=== PATIENT | female | born 1985 | race African-American/Black ===

== ENCOUNTER 2018-06-12 23:24 | Emergency (ER) | payer OTHER, BC ==
[2018-06-12 23:28] VITALS: BP 123/79; PULSE 86; TEMP 98; BMI 40.8
--- NOTE | 2018-06-13 00:12 | PDOC ---
History of Present Illness - General History Source: Patient Exam Limitations: No Limitations - History of Present Illness Initial Comments: 06/13/18 00:25 The patient is a 32-year-old female present to the emergency department with ear pain. The patient presents with 2 weeks of Left ear pain. The patient reports using ear wax drop and Q-tip to remove the wax from the ear, without success. The patient reports now the pain is to her face and nerves Denies fever. <Belkis Darling - Last Filed: 06/13/18 00:22> <Abel David - Last Filed: 06/13/18 00:35> - General Chief Complaint: Ear Problem Stated Complaint: EAR INFECTION Time Seen by Provider: 06/13/18 00:11 Past History <Belkis Darling - Last Filed: 06/13/18 00:22> - Past Medical History Anemia: No Asthma: No CVA: No COPD: No Diabetes: No HTN: No Liver Disease: No Seizures: No Thyroid Disease: No - Immunization History Immunization Up to Date: Yes - Suicide/Smoking/Psychosocial Hx Smoking History: Never smoked Have you smoked in the past 12 months: No Information on smoking cessation initiated: No Hx Alcohol Use: No Drug/Substance Use Hx: No <Abel David - Last Filed: 06/13/18 00:35> - Past Medical History Allergies/Adverse Reactions: Allergies Allergy/AdvReac Type Severity Reaction Status Date / Time amoxicillin trihydrate AdvReac Vomiting Verified 06/12/18 23:28 [From Augmentin] potassium clavulanate AdvReac Vomiting Verified 06/12/18 23:28 [From Augmentin] Home Medications: Ambulatory Orders Diclofenac Sodium [Voltaren] 4 g TP Q6H PRN #100 gel..gram. 08/19/17 Carboxymethylcellulose Sodium [Thera Tears] 1 - 2 drop OP PRN #15 ml 12/02/17 Clotrimazole [Clotrimazole AF] 1 applic TP BID #60 cream..g. 12/02/17 Triamcinolone 0.1% Ointment [Aristocort 0.1% Ointment -] 1 applic TP BID #30 applic 12/02/17 Abacavir Sulfate/Lamivudine [Epzicom Tablet] 1 tablet PO DAILY #30 tablet Albuterol Sulfate Inhaler - [Ventolin HFA Inhaler -] 1 - 2 puff IH Q6H PRN #1 inhaler 03/31/18 Beclomethasone Dipropionate [Qvar] 2 puff IH BID #1 aer.w.adap 03/31/18 Darunavir/Cobicistat [Prezcobix 800 mg-150 mg Tablet] 1 each PO DAILY #30 tablet 03/31/18 Vitamins (Sjr) - 1 tab PO DAILY #30 tablet 03/31/18 Raltegravir [Isentress -] 400 mg PO BID #60 tab 03/31/18 Valacyclovir HCl [Valtrex -] 500 mg PO DAILY #30 tablet 03/31/18 Cetirizine HCl [Zyrtec -] 10 mg PO HS PRN #30 tablet 04/15/18 Guaifenesin Dm [Robitussin Dm -] 10 ml PO Q4H PRN #240 ml 04/15/18 Ketoconazole 2% Shampoo [Nizoral 2% Shampoo -] 1 applic TP Q72H #1 bottle metroNIDAZOLE 0.75% VAG. GEL [Metrogel 0.75% *Vaginal Gel* -] 1 applic VG HS #1 tube 05/13/18 Review of Systems - Review of Systems Able to Perform ROS?: Yes Comments:: 06/13/18 00:25 A complete review of 10 out of 10 review of systems is taken and is negative apart from what is previously mentioned below and in the HPI. <Belkis Darling - Last Filed: 06/13/18 00:22> *Physical Exam - Vital Signs Last Vital Signs Temp Pulse Resp BP Pulse Ox 98.0 F 86 16 123/79 100 06/12/18 23:26 06/12/18 23:26 06/12/18 23:26 06/12/18 23:26 06/12/18 23:26 - Physical Exam Comments: 06/13/18 00:26 Vitals: Triage Vital signs reviewed General Appearance: no acute distress, well nourished well developed, Ears: +L. ear cerumen ball impact stuck against the TM. <Belkis Darling - Last Filed: 06/13/18 00:22> - Vital Signs Last Vital Signs Temp Pulse Resp BP Pulse Ox 98.0 F 86 16 123/79 100 06/12/18 23:26 06/12/18 23:26 06/12/18 23:26 06/12/18 23:26 06/12/18 23:26 <Abel David - Last Filed: 06/13/18 00:35> Medical Decision Making - Medical Decision Making 06/13/18 00:25 The patient is a 32-year-old female present to the emergency department with ear pain. The patient presents with 2 weeks of Left ear pain. The patient reports using ear wax drop and Q-tip to remove the wax from the ear, without success. The patient reports now the pain is to her face and nerves Denies fever. <Belkis Darling - Last Filed: 06/13/18 00:22> - Medical Decision Making 06/13/18 00:35 Impacted cerumen now abutting against the eardrum attempted manual disimpaction however unable to use direct visualization here in the emergency department patient did not tolerate procedure. Given risk of eardrum injury and no acute need for cerumen removal recommend patient have ear wax removed by ENT under microscope with suction Findings, the need for follow-up, strict return instructions discussed with patient. <Abel David - Last Filed: 06/13/18 00:35> *DC/Admit/Observation/Transfer - Attestations Scribe Attestion: 06/13/18 00:28 Documentation prepared by Belkis Darling, acting as medical lead for Abel David MD. <Belkis Darling - Last Filed: 06/13/18 00:22> - Discharge Dispostion Decision to Admit order: No <Abel David - Last Filed: 06/13/18 00:35> Diagnosis at time of Disposition: Impacted cerumen of left ear - Discharge Dispostion Disposition: HOME - Referrals Referrals: Henok Walden MD [Staff Physician] - - Patient Instructions Printed Discharge Instructions: Cerumen Impaction Additional Instructions: Continue to use Debrox eardrops. Do not use Q-tips. Follow-up with ENT on Thursday for removal of cerumen. Return to ED for any fever severe worsening symptoms or for any concerns. - Post Discharge Activity Forms/Work/School Notes: Back to Work
== END 2018-06-13 01:11 | disposition home or self-care (01) ==
LOC: JER 23:24
PROC: 09C47ZZ Extirpation of Matter from Left External Auditory Canal, Via Natural or Artificial Opening (ICD-10-PCS; principal; 2018-06-12)
DX: H61.22 Impacted cerumen, left ear (principal)
CPT/HCPCS: 69210; 99282-25

== ENCOUNTER 2021-02-21 17:58 | Emergency (ER) | payer BC, OTHER ==
[2021-02-21 18:10] VITALS: BP 116/79; PULSE 91; TEMP 98; BMI 42.9
[2021-02-21 19:08] LABS: BASO % 0.4 % (0-2.0); HEMATOCRIT 34.2 % (32.4-45.2); HEMOGLOBIN 11.1 GM/dL (10.7-15.3); LYMPH % 36.7 % (8-40); MCH 24.2 pg (25.7-33.7); MCHC 32.4 g/dl (32.0-36.0); MEAN CELL VOLUME 74.5 fl (80-96); MEAN PLT VOLUME 8.1 fl (7.5-11.1); MONO % 6.4 % (3.8-10.2); NEUT % 53.5 % (42.8-82.8); PLATELET COUNT 306 10^3/uL (134-434); RBC 4.59 M/mm3 (3.60-5.2); RDW 18.1 % (11.6-15.6); WHITE BLOOD COUNT 11.1 K/mm3 (4.0-10.0)
[2021-02-21 19:23] LABS: EPI CELLS >36 /uL (0-25.1); HYALINE CASTS 2 /uL (0-3.1); URINE APPEARANCE CLEAR; URINE BACTERIA 1805 /uL (0-1359); URINE BILIRUBIN NEGATIVE (NEGATIVE); URINE COLOR DK YELLOW; URINE GLUCOSE (UA) NEGATIVE (NEGATIVE); URINE KETONE NEGATIVE (NEGATIVE); URINE LEUK ESTERASE 1+ (NEGATIVE); URINE NITRITE NEGATIVE (NEGATIVE); URINE PROTEIN NEGATIVE (NEGATIVE); URINE UROBILINOGEN 0.2 mg/dL (0.2-1.0); URINE WBC 60 /uL (0-25.8)
[2021-02-21 19:25] LABS: CALCIUM 8.6 mg/dL (8.5-10.1)
[2021-02-21 19:26] LABS: ALBUMIN 3.2 g/dl (3.4-5.0); BLOOD UREA NITROGEN 15.4 mg/dL (7-18)
[2021-02-21 19:29] LABS: CREATININE 0.8 mg/dL (0.55-1.3)
[2021-02-21 19:30] LABS: TOT PROT 7.9 g/dl (6.4-8.2)
[2021-02-21 19:31] LABS: BILIRUBIN,TOTAL 0.3 mg/dL (0.2-1)
[2021-02-21 23:19] LABS: URINE RBC 68.9 /uL (0-23.9)
== END 2021-02-21 21:10 | disposition home or self-care (01) ==
LOC: JERFT 17:58 → JER 17:58 → JERFT 21:10
DX: O23.41 Unspecified infection of urinary tract in pregnancy, first trimester (principal); Z3A.01 Less than 8 weeks gestation of pregnancy
CPT/HCPCS: 36415; 76817-TC; 80053; 81003; 84702; 85025; 87086; 87186; 99284-25

== ENCOUNTER 2021-02-27 11:22 | Emergency (ER) | payer BC, OTHER ==
[2021-02-27 12:27] VITALS: BP 136/82; PULSE 107; TEMP 98.1; BMI 42.2
[2021-02-27 14:54] LABS: EPI CELLS >36 /uL (0-25.1); HYALINE CASTS 6 /uL (0-3.1); URINE APPEARANCE CLOUDY; URINE BACTERIA 269 /uL (0-1359); URINE BILIRUBIN NEGATIVE (NEGATIVE); URINE COLOR DK YELLOW; URINE GLUCOSE (UA) NEGATIVE (NEGATIVE); URINE KETONE NEGATIVE (NEGATIVE); URINE LEUK ESTERASE 2+ (NEGATIVE); URINE NITRITE NEGATIVE (NEGATIVE); URINE PROTEIN TRACE (NEGATIVE); URINE RBC 21 /uL (0-23.9); URINE UROBILINOGEN 0.2 mg/dL (0.2-1.0); URINE WBC 136 /uL (0-25.8)
[2021-02-27 15:25] LABS: YEAST PRESENT (NEGATIVE)
== END 2021-02-27 18:20 | disposition home or self-care (01) ==
LOC: JER 11:22
DX: U07.1 COVID-19 (principal); Z21 Asymptomatic human immunodeficiency virus [HIV] infection status; Z3A.01 Less than 8 weeks gestation of pregnancy
CPT/HCPCS: 76817-TC; 81003; 87086; 99284-25; C9803; U0003; U0005

== ENCOUNTER 2021-03-25 01:29 | Emergency (ER) | payer BC, OTHER ==
[2021-03-25 01:35] VITALS: BP 101/63; PULSE 96; BMI 42.9
[2021-03-25 03:05] LABS: EPI CELLS >36 /uL (0-25.1); HYALINE CASTS 2 /uL (0-3.1); URINE APPEARANCE CLOUDY; URINE BACTERIA 1940 /uL (0-1359); URINE BILIRUBIN NEGATIVE (NEGATIVE); URINE COLOR DK YELLOW; URINE GLUCOSE (UA) NEGATIVE (NEGATIVE); URINE KETONE TRACE (NEGATIVE); URINE LEUK ESTERASE 1+ (NEGATIVE); URINE NITRITE NEGATIVE (NEGATIVE); URINE PROTEIN NEGATIVE (NEGATIVE); URINE RBC 14 /uL (0-23.9); URINE UROBILINOGEN 0.2 mg/dL (0.2-1.0); URINE WBC 75 /uL (0-25.8)
[2021-03-25] MEDS ORDERED: CEPHALEXIN MONOHYDRATE 500 MG CAPSULE (UD) PO ONE (03:39)
[2021-03-25] MEDS ORDERED: CEPHALEXIN MONOHYDRATE 500 MG CAPSULE (UD) ONE (03:50)
== END 2021-03-25 04:02 | disposition home or self-care (01) ==
LOC: JER 01:29
DX: O26.851 Spotting complicating pregnancy, first trimester (principal); Z3A.11 11 weeks gestation of pregnancy
CPT/HCPCS: 76801-TC; 81003; 86850; 86900; 86901; 87086; 99284-25